=== PATIENT | female | born 1980 | race Caucasian/White ===

== ENCOUNTER 2019-08-10 12:16 | Inpatient (IN) | payer MEDICAID | END 2019-08-12 18:30 | disposition home or self-care (01) | LOC: ER 12:16 → OVERFLOW 12:17 → WEST WING 18:26 | PROC: 0FT44ZZ Resection of Gallbladder, Percutaneous Endoscopic Approach (ICD-10-PCS; principal; 2019-08-11 11:50) | DX: K80.20 Calculus of gallbladder without cholecystitis without obstruction (principal); E66.01 Morbid (severe) obesity due to excess calories; F31.9 Bipolar disorder, unspecified; I10 Essential (primary) hypertension; N39.0 Urinary tract infection, site not specified ==

== ENCOUNTER 2023-05-17 16:15 | Emergency (ER) | payer SELFPAY ==
[~2023-05-17] VITALS: Ht 157.5 cm; Wt 175.0 kg
[~2023-05-17 16:15] MED LIST: ASPI-543 PO; CARB200T4 PO; ERGO2000 PO; HYDR25TA4 PO; LOSA100T58 PO; METO-158 PO; OYST1TAB OR; RISP2TAB62 PO
[2023-05-17] MEDS ORDERED: LIDOCAINE 1% HCL (LOCAL ANESTH.) INJ 20ML MDV ID ONE (16:30)
[2023-05-17] MEDS ORDERED: TETANUS-DIPTH-ACEL PERTUSSIS 0.5ML SYR Tdap IM ONE (16:30)
[2023-05-17] MEDS ORDERED: HYDROcodone-ACET 7.5/325MG TAB PO ONE (19:45)
[2023-05-17] MEDS ORDERED: ceFAZolin IM 1GM/2.5ML STERILE WATER IM ONE (19:45)
[2023-05-17] MEDS ORDERED: ceFAZolin 1GM VL ONE (19:56)
[2023-05-17] MEDS ORDERED: MUPI2OIN2 EX (20:00)
[2023-05-17] MEDS ORDERED: IBU600T PO (20:00)
[2023-05-17] MEDS ORDERED: CEPH500T PO (20:00)
[2023-05-17 20:10] VITALS: BP 193/86
== END 2023-05-17 20:20 | disposition home or self-care (01) ==
LOC: ER 16:15
DX: S02.2XXB Fracture of nasal bones, initial encounter for open fracture (principal); S00.83XA Contusion of other part of head, initial encounter; S09.90XA Unspecified injury of head, initial encounter; H57.89 Other specified disorders of eye and adnexa; I10 Essential (primary) hypertension; Z98.890 Other specified postprocedural states; X58.XXXA Exposure to other specified factors, initial encounter; Y93.89 Activity, other specified; Y92.89 Other specified places as the place of occurrence of the external cause; Y99.8 Other external cause status
CPT/HCPCS: 12013; 70450; 70486; 90471; 90715; 96372; 99285; J0690